=== PATIENT | male | born 1995 | race Caucasian/White ===

== ENCOUNTER 2024-08-26 14:05 | Emergency (ER) | payer BC, SELFPAY ==
[2024-08-26] VITALS (7 sets, daily range): BP systolic 132–144; BP diastolic 77–88; PULSE 68–83; RESP 18; TEMP 36.1; O2SAT 97–99; BMI 27.4
--- NOTE | 2024-08-26 14:11 | ED.GENADULT ---
HPI - General Adult General Time Seen by Provider: 14:11 Date Seen: 08/26/24 Chief complaint: Chest Pain Stated complaint: left side chest/rib pain Time Seen by Provider: 08/26/24 14:10 Source: patient, RN notes reviewed and old records reviewed Mode of arrival: ambulatory Limitations: no limitations History of Present Illness HPI narrative: 28-year-old male who presents today with left-sided chest pain. Patient reports abrupt left-sided chest pain started about 2 hours prior to coming the emergency department. No known injury, no fall. Pain is worse with breathing, no cough. Has not taken anything for the symptoms. Does have a little bit of radiation into the left shoulder blade. Related Data Home Medications ?Medication ?Instructions ?Recorded ?Confirmed No Known Home Medications 08/26/24 08/26/24 Allergies Allergy/AdvReac Type Severity Reaction Status Date / Time Sulfa (Sulfonamide Allergy Intermediate Rash Verified 08/26/24 14:11 Antibiotics) Exam Narrative: Exam Narrative: General: Well-developed and well-nourished, no acute distress Head: Atraumatic and normocephalic Eyes: Pupils are equal reactive, extraocular motions intact, conjunctiva clear ENT: External nose and ears are normal, posterior pharynx without erythema or exudate Neck: No midline cervical tenderness, full spontaneous range of motion the neck, trachea midline, no adenopathy Heart: Regular rate and rhythm no murmurs or thrills Lungs: Clear to auscultation bilaterally without wheezes or crackles Abdomen: Soft, nontender, nondistended with active bowel sounds Musculoskeletal: No tenderness, deformity, or edema Neurologic: Awake, alert, and oriented x3, no gross focal neurologic deficits, cranial nerves intact as tested Psych: Mood and affect are appropriate Skin: No rashes Const: Vital Signs, click to edit/add: Vital Signs - 24 hr 08/26/24 14:11 Temperature 97.0 F L Pulse Rate [Pulse Oximeter] 83 Respiratory Rate 18 Blood Pressure [Ri ght Upper Arm] 144/88 H Pulse Oximetry 98 Course Course ED Course: Reviewed most recent primary care visit from November 2021 which was for treatment of a wart of the great toe, was treated and no further follow-up. Patient seen and examined, presents with left-sided chest pain abrupt onset a couple hours prior to coming the emergency department. On exam here, patient's finally stable. Pain is not reproducible, he points to the lateral chest wall and left shoulders main areas of pain when he breathes. Denies associated shortness of breath. Lung sounds are equal, EKG reassuring. Labs ordered including D-dimer. Toradol IV for pain. EKG independently interpreted by me performed at 2:22 p.m. demonstrates sinus rhythm was sinus rhythm 78, right axis deviation, [place] 140, QTC 424, QRS 86, no acute ischemic changes. No prior for comparison. Reevaluation(s) Time of Reevaluation #1: 15:04 Reevaluation #1: Labs independently interpreted by me with leukocytosis, normal basic panel, negative troponin. Chest x-ray and panel interpreted by me negative for acute findings. Time of Reevaluation #2: 15:28 Reevaluation #2: Labs independently interpreted by me with negative D-dimer. Patient is feeling better after Toradol and stable for discharge. Vital Signs Vital signs: Initial Vital Signs Temperature 97.0 F L 08/26/24 14:11 Temperature Source Temporal Artery Scan 08/26/24 14:11 Pulse Rate 83 08/26/24 14:11 Pulse Rhythm Regular 08/26/24 14:11 Respiratory Rate 18 08/26/24 14:11 Blood Pressure 144/88 H 08/26/24 14:11 Blood Pressure Mean 106 H 08/26/24 14:11 Blood Pressure Position Sitting 08/26/24 14:11 Pulse Oximetry 98 08/26/24 14:11 Vital Signs Temperature 97.0 F L 08/26/24 14:11 Pulse Rate 83 08/26/24 14:11 Respiratory Rate 18 08/26/24 14:11 Blood Pressure 144/88 H 08/26/24 14:11 Pulse Oximetry 98 08/26/24 14:11 Temperature 97.0 F L 08/26/24 14:11 Pulse Rate 83 08/26/24 14:11 Respiratory Rate 18 08/26/24 14:11 Blood Pressure 144/88 H 08/26/24 14:11 Pulse Oximetry 98 08/26/24 14:11 Medications Administered Medications: Discontinued Medications Generic Name Dose Route Start Last Admin Trade Name Freq PRN Reason Stop Dose Admin Ketorolac Tromethamine 15 mg 08/26/24 14:23 08/26/24 14:38 Ketorolac 15 Mg/Ml Inj IVP 08/26/24 14:24 15 mg ONCE ONE Administration Medical Decision Making Lab Data Labs: Lab Results 08/26/24 08/26/24 Range/Units 14:24 14:30 WBC 13.11 H (4.50-11.00) K/uL RBC 4.93 (4.30-5.90) m/uL Hgb 15.7 (13.5-17.5) gm/dL Hct 47.3 (37.0-53.0) % MCV 96 (80-100) fL MCH 32 (26-34) pg MCHC 33 (32-36) gm/dL RDW Coeff of [place] 12.3 (11.5-15.5) % Plt Count 277 (140-440) K/uL Neut % (Auto) 72.5 H (42.0-72.0) % Lymph % (Auto) 19.3 L (20-44) % [place] % (Auto) 5.5 (0.0-11.0) % Eos % (Auto) 2.1 (0.0-7.0) % Baso % (Auto) 0.4 (0.0-3.0) % Neut # (Auto) 9.50 H (1.7-7.0) K/uL Lymph # (Auto) 2.50 (0.90-2.90) K/uL [place] # (Auto) 0.70 (0.00-0.90) K/UL Eos # (Auto) 0.30 (0.00-0.50) K/uL Baso # (Auto) 0.10 (0.00-0.30) K/uL Abs Immat Gran (auto) 0.00 (0.00-0.30) K/uL Imm/Tot Granulo (auto) 0.2 % D-Dimer Quant (PE/DVT) < 0.22 (0.00-0.50) ug/ml Sodium 137 (135-149) mmol/L Potassium 3.9 (3.6-5.1) mmol/L Chloride 103 (96-114) mmol/L Carbon Dioxide 27 (20-32) mmol/L Anion Gap 7 (7-15) mEq/L BUN 20 (5-24) mg/dL Creatinine 1.0 (0.5-1.5) mg/dL Estimated Creat Clear 99.24 Estimated GFR 105 ml/min Glucose 71 (60-115) mg/dL Calcium 9.6 (8.4-10.6) mg/dL Magnesium 2.0 (1.5-2.6) mg/dL NT-Pro-B Natriuret Pep < 20 pg/mL POC Troponin I 0.00 L (0.01-0.04) ng/ml Discharge Plan Discharge Clinical Impression: Atypical chest pain, Pleurisy Patient Disposition: Home, Self-Care Condition: Stable Instructions: Pleurisy (DC), Noncardiac Chest Pain (ED) Additional Instructions: Take Tylenol and ibuprofen as needed for pain Follow-up with primary care in 1 week if needed Activity Level: Activity as Tolerated Discharge Diet: Regular Prescriptions: No Action No Known Home Medications Follow Up/Referrals: Kunal Strong MD [Primary Care Provider] - Stand Alone Forms: [employer], [employer] Info Instructions
--- NOTE | 2024-08-26 14:24 | CRLHL7_ITS ---
For Patients: As a result of the Century Cures Act, medical imaging exams and procedure reports are released immediately into your electronic medical record. You may view this report before your referring provider. If you have questions, please contact your health care provider. Indication: Chest pain Technique: PA and lateral views of the chest. Comparison: None. Findings: Normal cardiomediastinal silhouette. No focal consolidation, pleural effusions, or visualized pneumothorax. Impression: No acute cardiopulmonary disease. Dictated by Abdullahi Ruiz MD @ 08/26/2024 3:08:21 PM (Electronically Signed)
[2024-08-26 14:36] LABS: Basophils Percent Auto 0.4 % (0.0-3.0); Eosinophils Percent Auto 2.1 % (0.0-7.0); Hematocrit 47.3 % (37.0-53.0); Hemoglobin* 15.7 gm/dL (13.5-17.5); Immature Granulocytes Pct Auto 0.2 %; Lymphocytes Percent Auto 19.3 % (20-44); Mean Corpuscular HGB Conc 33 gm/dL (32-36); Mean Corpuscular Hemoglobin 32 pg (26-34); Mean Corpuscular Volume 96 fL (80-100); Monocytes Percent Auto 5.5 % (0.0-11.0); Neutrophils Percent Auto 72.5 % (42.0-72.0); Platelet Count* 277 K/uL (140-440); RDW Coefficient of Variation % 12.3 % (11.5-15.5); Red Blood Count 4.93 m/uL (4.30-5.90); White Blood Count* 13.11 K/uL (4.50-11.00)
[2024-08-26 14:37] LABS: Slide Review Reflex No
[2024-08-26] MEDS: KETOROLAC 15 MG/ML inj IVP (14:38)
[2024-08-26 14:52] LABS: Chloride* 103 mmol/L (96-114); Sodium* 137 mmol/L (135-149)
[2024-08-26 14:53] LABS: Potassium* 3.9 mmol/L (3.6-5.1)
[2024-08-26 14:55] LABS: Est. Creatinine Clearance* 99.24; Estimated Glomerular Filt Rate 105 ml/min
[2024-08-26 14:56] LABS: Anion Gap 7 mEq/L (7-15); Blood Urea Nitrogen* 20 mg/dL (5-24); Calcium* 9.6 mg/dL (8.4-10.6); Carbon Dioxide* 27 mmol/L (20-32); Glucose* 71 mg/dL (60-115)
[2024-08-26 15:25] LABS: NT Pro B Type NatriureticPept* < 20 pg/mL
[2024-08-26 15:26] LABS: D Dimer Quantitative* < 0.22 ug/ml (0.00-0.50)
== END 2024-08-26 15:36 | disposition home or self-care (01) ==
PROVIDERS: Emergency Provider Family Medicine; PCP Family Medicine
DX: R07.9 Chest pain, unspecified (principal); R09.1 Pleurisy
CPT/HCPCS: 36415; 71046; 80048; 83735; 83880; 84484; 85025; 85379; 93005; 96374; 99284; J1885